=== PATIENT | female | born 1940 | race Caucasian/White ===

== ENCOUNTER 2024-04-08 12:43 | Inpatient (IN) ==
[2024-04-08] MEDS ORDERED: IOPAMIDOL 100 ML BOTTLE IV ONE (12:44)
[2024-04-08 14:00] LABS: ALT/SGPT 18 U/L (<40); AST/SGOT 33 U/L (<32); Albumin 4.4 gm/dL (3.2-5.2); Albumin/Globulin Ratio 1.4 (1.0-2.3); Alkaline Phosphatase 114 U/L (39-117); Bilirubin,Total 1.5 mg/dL (0.1-1.0); Blood Urea Nitrogen 31 mg/dL (8-23); Calcium 9.5 mg/dL (8.6-10.4); Carbon Dioxide 21 mmol/L (22-30); Chloride 106 mmol/L (96-108); Globulin 3.1 gm/dL (2.2-3.7); Glomerular Filtration Rate 51; Glucose 119 mg/dL (70-105); Potassium 3.7 mmol/L (3.3-5.1); Sodium 145 mmol/L (133-145)
[2024-04-08 14:51] LABS: Alcohol, Blood < 10.1 mg/dL; Alcohol,Blood < 0.010 gm/dL (<0.010)
[2024-04-08 15:05] LABS: Basophils # (Auto) 0.06 K/mcL (0.00-0.30); Basophils % (Auto) 0.7 % (0.0-2.0); Eosinophils # (Auto) 0.01 K/mcL (0.00-0.70); Eosinophils % (Auto) 0.1 % (0.0-7.0); Hematocrit 38.5 % (34.1-44.9); Hemoglobin 12.2 g/dL (11.2-15.7); Lymphocytes # (Auto) 1.16 K/mcL (1.50-4.80); Lymphocytes % (Auto) 12.9 % (15.5-49.0); Mean Cell Volume 100.5 fL (80.0-100.0); Mean Corpuscular HGB Conc 31.7 g/dL (31.0-36.0); Mean Platelet Volume 13.9 fL (8.8-12.5); Monocytes # (Auto) 0.55 K/mcL (0.10-0.90); Monocytes % (Auto) 6.1 % (1.0-12.0); Neutrophils % (Auto) 79.9 % (38.0-78.0); Platelet Count 183 K/mcL (140-440); RBC 3.83 M/mcL (3.59-5.38); Red Cell Distribution Width 16.8 % (11.5-14.5)
[2024-04-08 15:13] LABS: Free T4 (Free Thyroxine) 0.23 ng/dL (0.93-1.70)
[2024-04-08] MEDS: METOPROLOL TARTRATE 5 MG/5 ML VIAL IV ONE (15:30)
[2024-04-08] MEDS: SODIUM CHLORIDE IV ONE (15:30)
[2024-04-08] MEDS: FUROSEMIDE 20 MG/2 ML VIAL IV ONE (15:30)
[2024-04-08] MEDS: ONDANSETRON 4 MG/2 ML VIAL IV ONE (16:25)
[2024-04-08 16:55] LABS: Appearance,Urine CLOUDY (Clear); Bacteria,Urine MANY /hpf (0); Bilirubin,Urine Negative (Negative); Color,Urine Yellow; Glucose,Urine (UA) Negative (Negative); Ketones,Urine Negative (Negative); Leukocyte Esterase,Urine 250 /uL (Negative); Nitrate,Urine Negative (Negative); Protein,Urine 100 mg/dL (Negative); Specific Gravity,Urine 1.015 (1.000-1.035); Urine Blood 0.03 mg/dL (Negative); Urine RBC 5 /hpf (0-3); Urine Squamous Epithelial Cell 6 /hpf (0-4); Urine WBC 118 /hpf (0-4); Urobilinogen,Urine Negative
[2024-04-08 17:02] LABS: Amphetamine Screen,Urine None detected; Barbiturate Screen,Urine None detected; Benzodiazepines Screen,Urine None detected; Cannabinoid Screen,Urine None detected; Cocaine Screen,Urine None detected; Fentanyl, Urine Screen None Detected; Opiate Screen,Urine None detected; Oxycodone, Urine Screen None detected; Phencyclidine Screen,Urine None detected
[2024-04-08] MEDS: cefTRIAXone 1 GM VIAL IV ONE (17:35)
[2024-04-08] MEDS ORDERED: ONDANSETRON 4 MG/2 ML VIAL IV PRN (20:27)
[2024-04-08] MEDS ORDERED: LACTULOSE 20 GM/30 ML ORAL.SOL PO PRN (20:27)
[2024-04-08] MEDS ORDERED: SENNOSIDES 1 TABLET PO PRN (20:27)
[2024-04-08] MEDS ORDERED: IPRATROPIUM/ALBUTEROL 3 ML AMPUL.NEB NEB PRN (20:27)
[2024-04-08] MEDS: LEVOTHYROXINE 100 MCG VIAL IV ONE (20:38)
[2024-04-08] MEDS: NALOXONE HCL 0.4 MG/ML VIAL ONE (21:26)
[2024-04-08] MEDS: NALOXONE HCL 0.4 MG/ML VIAL IV ONE (21:31)
[2024-04-08] MEDS: METOPROLOL TARTRATE 25 MG TABLET PO SCH (21:40)
[2024-04-08] MEDS: HEPARIN 5,000 UNIT/ML VIAL SQ SCH (21:41)
[2024-04-08] MEDS: FUROSEMIDE 40 MG/4 ML VIAL IV ONE (21:45)
[2024-04-08] MEDS: 0.9 % SODIUM CHLORIDE 10 ML SYRINGE IV SCH (21:46)
[2024-04-09 07:17] LABS: ALT/SGPT 25 U/L (<40); AST/SGOT 46 U/L (<32); Albumin/Globulin Ratio 1.4 (1.0-2.3); Alkaline Phosphatase 161 U/L (39-117); Bilirubin,Direct 0.3 mg/dL (<0.3); Bilirubin,Total 0.8 mg/dL (0.1-1.0); Blood Urea Nitrogen 31 mg/dL (8-23); Calcium 8.8 mg/dL (8.6-10.4); Carbon Dioxide 21 mmol/L (22-30); Chloride 107 mmol/L (96-108); Globulin 2.8 gm/dL (2.2-3.7); Glomerular Filtration Rate 58; Glucose 88 mg/dL (70-105); Lactate Dehydrogenase 293 U/L (135-225); Phosphorous 4.3 mg/dL (2.5-4.5); Potassium 4.7 mmol/L (3.3-5.1); Sodium 145 mmol/L (133-145); Triglycerides 93 mg/dL (<150); Uric Acid 8.3 mg/dL (2.5-8.0)
[2024-04-09] MEDS: LEVOTHYROXINE 100 MCG VIAL IV SCH (07:38)
[2024-04-09 07:41] LABS: Basophils # (Auto) 0.06 K/mcL (0.00-0.30); Basophils % (Auto) 0.6 % (0.0-2.0); Eosinophils # (Auto) 0.06 K/mcL (0.00-0.70); Eosinophils % (Auto) 0.6 % (0.0-7.0); Hematocrit 40.4 % (34.1-44.9); Lymphocytes # (Auto) 1.51 K/mcL (1.50-4.80); Mean Cell Volume 107.7 fL (80.0-100.0); Mean Corpuscular HGB Conc 29.7 g/dL (31.0-36.0); Mean Platelet Volume 13.6 fL (8.8-12.5); Monocytes # (Auto) 0.92 K/mcL (0.10-0.90); Monocytes % (Auto) 9.8 % (1.0-12.0); Neutrophils % (Auto) 72.5 % (38.0-78.0); Platelet Count 184 K/mcL (140-440); RBC 3.75 M/mcL (3.59-5.38); Red Cell Distribution Width 17.2 % (11.5-14.5); WBC 9.4 K/mcL (4.5-11.0)
[2024-04-09] MEDS: FUROSEMIDE 40 MG/4 ML VIAL IV SCH (08:02)
[2024-04-09] MEDS: cefTRIAXone 1 GM VIAL IV SCH (08:11)
[2024-04-09] MEDS: ACETAMINOPHEN 325 MG TABLET PO PRN (18:50)
[2024-04-10 06:54] LABS: ALT/SGPT 19 U/L (<40); AST/SGOT 32 U/L (<32); Albumin 3.6 gm/dL (3.2-5.2); Albumin/Globulin Ratio 1.5 (1.0-2.3); Alkaline Phosphatase 124 U/L (39-117); Bilirubin,Direct < 0.2 mg/dL (0-0.3); Bilirubin,Total 0.4 mg/dL (0.1-1.0); Blood Urea Nitrogen 31 mg/dL (8-23); Calcium 8.6 mg/dL (8.6-10.4); Carbon Dioxide 24 mmol/L (22-30); Chloride 106 mmol/L (96-108); Globulin 2.4 gm/dL (2.2-3.7); Glomerular Filtration Rate 51; Glucose 84 mg/dL (70-105); Lactate Dehydrogenase 269 U/L (135-225); Phosphorous 3.7 mg/dL (2.5-4.5); Potassium 3.6 mmol/L (3.3-5.1); Sodium 143 mmol/L (133-145); Triglycerides 76 mg/dL (<150); Uric Acid 8.5 mg/dL (2.5-8.0)
[2024-04-10] MEDS: LEVOTHYROXINE 50 MCG TABLET PO SCH (07:06)
[2024-04-10] MEDS: METOPROLOL SUCCINATE 25 MG TAB.XL.24H PO SCH (09:36)
[2024-04-10 12:39] LABS: Basophils # (Auto) 0.07 K/mcL (0.00-0.30); Eosinophils # (Auto) 0.17 K/mcL (0.00-0.70); Eosinophils % (Auto) 2.5 % (0.0-7.0); Hematocrit 35.5 % (34.1-44.9); Hemoglobin 10.8 g/dL (11.2-15.7); Lymphocytes # (Auto) 1.02 K/mcL (1.50-4.80); Lymphocytes % (Auto) 14.8 % (15.5-49.0); Mean Corpuscular HGB Conc 30.4 g/dL (31.0-36.0); Mean Platelet Volume 13.7 fL (8.8-12.5); Monocytes # (Auto) 0.69 K/mcL (0.10-0.90); Neutrophils % (Auto) 71.3 % (38.0-78.0); Platelet Count 150 K/mcL (140-440); RBC 3.35 M/mcL (3.59-5.38); Red Cell Distribution Width 16.9 % (11.5-14.5); WBC 6.9 K/mcL (4.5-11.0)
[2024-04-11 06:56] LABS: Basophils # (Auto) 0.05 K/mcL (0.00-0.30); Basophils % (Auto) 0.7 % (0.0-2.0); Eosinophils # (Auto) 0.15 K/mcL (0.00-0.70); Eosinophils % (Auto) 2.1 % (0.0-7.0); Hematocrit 34.9 % (34.1-44.9); Hemoglobin 10.9 g/dL (11.2-15.7); Lymphocytes # (Auto) 1.04 K/mcL (1.50-4.80); Lymphocytes % (Auto) 14.9 % (15.5-49.0); Mean Cell Volume 101.2 fL (80.0-100.0); Mean Corpuscular HGB Conc 31.2 g/dL (31.0-36.0); Mean Platelet Volume 14.3 fL (8.8-12.5); Monocytes # (Auto) 0.65 K/mcL (0.10-0.90); Monocytes % (Auto) 9.3 % (1.0-12.0); Neutrophils % (Auto) 72.7 % (38.0-78.0); Platelet Count 155 K/mcL (140-440); RBC 3.45 M/mcL (3.59-5.38); Red Cell Distribution Width 16.9 % (11.5-14.5)
[2024-04-11] MEDS: LEVOTHYROXINE 75 MCG TABLET PO SCH (08:04)
[2024-04-11 10:06] LABS: ALT/SGPT 18 U/L (<40); AST/SGOT 27 U/L (<32); Albumin 3.5 gm/dL (3.2-5.2); Albumin/Globulin Ratio 1.2 (1.0-2.3); Alkaline Phosphatase 117 U/L (39-117); Bilirubin,Direct < 0.2 mg/dL (0-0.3); Bilirubin,Total 0.3 mg/dL (0.1-1.0); Blood Urea Nitrogen 26 mg/dL (8-23); Carbon Dioxide 28 mmol/L (22-30); Chloride 101 mmol/L (96-108); Globulin 2.9 gm/dL (2.2-3.7); Glomerular Filtration Rate 67; Glucose 87 mg/dL (70-105); Lactate Dehydrogenase 254 U/L (135-225); Phosphorous 2.5 mg/dL (2.5-4.5); Potassium 3.4 mmol/L (3.3-5.1); Sodium 142 mmol/L (133-145); Triglycerides 83 mg/dL (<150); Uric Acid 8.6 mg/dL (2.5-8.0)
[2024-04-11] MEDS: POTASSIUM CHLORIDE 20 MEQ PACKET PO ONE ×2 (11:17→15:53)
[2024-04-12 07:13] LABS: ALT/SGPT 18 U/L (<40); AST/SGOT 33 U/L (<32); Albumin 3.7 gm/dL (3.2-5.2); Albumin/Globulin Ratio 1.2 (1.0-2.3); Alkaline Phosphatase 129 U/L (39-117); Bilirubin,Direct < 0.2 mg/dL (0-0.3); Bilirubin,Total 0.4 mg/dL (0.1-1.0); Blood Urea Nitrogen 25 mg/dL (8-23); Calcium 9.1 mg/dL (8.6-10.4); Carbon Dioxide 27 mmol/L (22-30); Chloride 96 mmol/L (96-108); Globulin 3.2 gm/dL (2.2-3.7); Glomerular Filtration Rate 67; Glucose 84 mg/dL (70-105); Lactate Dehydrogenase 353 U/L (135-225); Phosphorous 2.3 mg/dL (2.5-4.5); Potassium 4.3 mmol/L (3.3-5.1); Sodium 139 mmol/L (133-145); Triglycerides 90 mg/dL (<150); Uric Acid 8.6 mg/dL (2.5-8.0)
[2024-04-12 08:27] LABS: Basophils # (Auto) 0.06 K/mcL (0.00-0.30); Basophils % (Auto) 0.8 % (0.0-2.0); Eosinophils # (Auto) 0.18 K/mcL (0.00-0.70); Eosinophils % (Auto) 2.3 % (0.0-7.0); Hematocrit 39.2 % (34.1-44.9); Hemoglobin 12.3 g/dL (11.2-15.7); Lymphocytes # (Auto) 1.78 K/mcL (1.50-4.80); Lymphocytes % (Auto) 22.5 % (15.5-49.0); Mean Cell Volume 102.1 fL (80.0-100.0); Mean Corpuscular HGB Conc 31.4 g/dL (31.0-36.0); Mean Platelet Volume 14.3 fL (8.8-12.5); Monocytes # (Auto) 0.83 K/mcL (0.10-0.90); Monocytes % (Auto) 10.5 % (1.0-12.0); Neutrophils % (Auto) 63.3 % (38.0-78.0); Platelet Count 171 K/mcL (140-440); RBC 3.84 M/mcL (3.59-5.38); Red Cell Distribution Width 17.2 % (11.5-14.5); WBC 7.9 K/mcL (4.5-11.0)
[2024-04-12] MEDS: LOSARTAN 25 MG TABLET PO SCH (09:12)
[2024-04-12] MEDS: FUROSEMIDE 40 MG TABLET PO SCH (09:12)
[2024-04-12] MEDS: SPIRONOLACTONE 25 MG TABLET PO SCH (09:13)
[2024-04-12] MEDS: CEFDINIR 300 MG CAPSULE PO SCH (20:22)
[2024-04-13 07:37] LABS: ALT/SGPT 14 U/L (<40); AST/SGOT 29 U/L (<32); Albumin 3.7 gm/dL (3.2-5.2); Albumin/Globulin Ratio 1.2 (1.0-2.3); Alkaline Phosphatase 120 U/L (39-117); Bilirubin,Direct < 0.2 mg/dL (0-0.3); Bilirubin,Total 0.4 mg/dL (0.1-1.0); Blood Urea Nitrogen 24 mg/dL (8-23); Calcium 9.3 mg/dL (8.6-10.4); Carbon Dioxide 27 mmol/L (22-30); Chloride 99 mmol/L (96-108); Globulin 3.2 gm/dL (2.2-3.7); Glomerular Filtration Rate 67; Glucose 125 mg/dL (70-105); Lactate Dehydrogenase 301 U/L (135-225); Phosphorous 2.7 mg/dL (2.5-4.5); Potassium 3.8 mmol/L (3.3-5.1); Sodium 141 mmol/L (133-145); Triglycerides 94 mg/dL (<150); Uric Acid 8.3 mg/dL (2.5-8.0)
[2024-04-13 07:53] LABS: Basophils # (Auto) 0.07 K/mcL (0.00-0.30); Basophils % (Auto) 0.8 % (0.0-2.0); Eosinophils # (Auto) 0.24 K/mcL (0.00-0.70); Eosinophils % (Auto) 2.7 % (0.0-7.0); Hematocrit 39.3 % (34.1-44.9); Hemoglobin 12.5 g/dL (11.2-15.7); Lymphocytes # (Auto) 1.23 K/mcL (1.50-4.80); Lymphocytes % (Auto) 13.7 % (15.5-49.0); Mean Cell Volume 100.8 fL (80.0-100.0); Mean Corpuscular HGB Conc 31.8 g/dL (31.0-36.0); Mean Platelet Volume 14.2 fL (8.8-12.5); Monocytes # (Auto) 0.96 K/mcL (0.10-0.90); Monocytes % (Auto) 10.7 % (1.0-12.0); Neutrophils % (Auto) 70.8 % (38.0-78.0); Platelet Count 184 K/mcL (140-440); Red Cell Distribution Width 17.2 % (11.5-14.5)
== END 2024-04-13 10:30 | DRG 291 ==
LOC: ED 12:43 → ICU 20:07 → MEDSUR 04-10 18:00
PROVIDERS: ADMIT Student in an Organized Health Care Education/Training Program; ATTEND Student in an Organized Health Care Education/Training Program